=== PATIENT | male | born 1990 | race Caucasian/White ===

== ENCOUNTER 2017-01-14 09:29 | Day surgery (SDC) | payer OTHER ==
[~2017-01-14 09:29] MED LIST: BACTRIM DS TAB1 EAC2 PO; BENADRYL ALLERG25 M1 PO; CALCIUM CARBON600 M2 PO; CIPRO500 M2 PO; CULTURELLE1 EAC1 PO; CYCLOBENZAPRINE5 M1 PO; IBUPROFEN800 M1 PO; LEVAQUIN750 M1 PO; MAXIPIME IV; NEURONTIN300 M1 PO; PERCOCET 5-3251 EACH PO; PREDNISONE20 M1 PO; TYLENOL EXTRA500 M1 PO; VALTREX1000 M1 PO; VITAMIN C500 M3 PO; VITAMIN D31000 UNI3 PO; XARELTO10 M1 PO
[2017-01-15 04:18] LABS: EOS % 0.1 % (0-7); HGB-HEMOGLOBIN 11.5 gm/dl (13.5-17.0); IMMATURE GRANULOCYTES ABSOLUTE 0.02 tho/cmm (0-0.03); IMMATURE GRANULOCYTES PERCENT 0.2 % (0-0.3); LYMPH % 10.5 % (20-45); MCH (MEAN CORPUSCULAR HGB) 30.5 pg (28.0-32.0); MCHC MEAN CORPUSCULAR HGB CONC 34.8 % (32.0-36.0); MCV (MEAN CELL VOLUME) 87.5 fl (82.0-96.0); MEAN PLATELET VOLUME 8.3 cmc (9.4-12.4); MONO % 14.1 % (0-12); MONOCYTE ABSOLUTE COUNT 1.3 tho/cmm (0.0-1.2); NEUTROPHIL ABSOLUTE COUNT 6.9 tho/cmm (1.6-8.0); NEUTROPHIL-AUTOMATED 6.9 tho/cmm (1.6-8.0); NEUTROPHILS % 75.1 % (40-80); PLATELET COUNT 228 tho/cmm (150-450); RED BLOOD COUNT 3.77 mil/cmm (4.40-5.70); RED CELL DISTRIBUTION WIDTH 12.4 % (12.4-16.4); WHITE BLOOD COUNT 9.2 tho/cmm (4.0-10.0)
[2017-01-15] MEDS ORDERED: CYCLOBENZAPRINE5 M1 PO (10:04)
[2017-01-15] MEDS ORDERED: PERCOCET 5-3251 EACH PO (10:05)
[2017-01-15] MEDS ORDERED: ZOFRAN4 M2 PO (10:06)
[2017-01-15] MEDS ORDERED: NEURONTIN300 M1 PO (10:06)
[2017-01-15] MEDS ORDERED: XARELTO10 M1 PO (10:19)
--- NOTE | 2017-01-15 19:41 | NUR ---
THIS NURSE FOUND PT'S POPITEAL PAIN BALL WAS DISCONNECTED AND FOUND IN THE BEDDING. JORDANA RESENDEZ CALLED [facility]ETHS[facility]. MD CAME UP, PULLED LINE FROM PATIENT; BANDAIDE APPLIED TO AREA. 370ML OF MEDICATION WAS DISTRUCTED BY FARIHA LEONARD AND JORDANA RESENDEZ.
== END 2017-01-15 12:40 ==
LOC: SRG 09:29 → SHSA 09:30 → ORE 11:58 → PACU 16:02 → 5EA 17:25
PROVIDERS: Podiatrist Foot & Ankle Surgery
PROC: 0SGF07Z Fusion of Right Ankle Joint with Autologous Tissue Substitute, Open Approach (ICD-10-PCS; principal; 2017-01-14)
PROC: 0QB20ZZ Excision of Right Pelvic Bone, Open Approach (ICD-10-PCS; 2017-01-14)
PROC: 079T3ZX Drainage of Bone Marrow, Percutaneous Approach, Diagnostic (ICD-10-PCS; 2017-01-14)
DX: M19.171 Post-traumatic osteoarthritis, right ankle and foot (principal); M00.9 Pyogenic arthritis, unspecified; S82.51XK Displaced fracture of medial malleolus of right tibia, subsequent encounter for closed fracture with nonunion; F41.9 Anxiety disorder, unspecified; F32.9 Major depressive disorder, single episode, unspecified; Z79.1 Long term (current) use of non-steroidal anti-inflammatories (NSAID); Z79.899 Other long term (current) drug therapy; Z88.1 Allergy status to other antibiotic agents; Z88.5 Allergy status to narcotic agent; Z87.891 Personal history of nicotine dependence; Z86.14 Personal history of Methicillin resistant Staphylococcus aureus infection; Z98.890 Other specified postprocedural states
CPT/HCPCS: C1713; J1170; J2250; J2795; J3010; P9034